=== PATIENT | female | born 1980 | race Caucasian/White ===

== ENCOUNTER 2022-06-01 11:41 | Emergency (ER) | payer SELFPAY ==
[2022-06-01 12:32] LABS: BASOPHIL 0.7 % (0-2); HCT 38.5 % (37.0-47.0); HGB 12.7 g/dl (12.5-16.0); LYMPHOCYTE 37.1 % (15-48); MCH 27.7 pg (25.0-31.0); MCV 84.1 fL (78.0-100.0); MONOCYTE 8.6 % (0-12); MPV 9.7 fL (6.0-9.5); NEUTROPHIL 51.6 % (41-80); NRBC 0; PLT 267 K/uL (150-400); RBC 4.58 M/uL (4.20-5.40); RDW 14.3 % (11.5-14.0); WBC 4.4 K/uL (4.0-10.5)
[2022-06-01 12:44] LABS: BILIRUBIN NEGATIVE (NEGATIVE); BLOOD NEGATIVE Ery/uL (NEGATIVE); CLARITY HAZY (CLEAR); COLOR YELLOW (YELLOW); GLUCOSE (U) NORMAL (NORMAL); LEUKOCYTES NEGATIVE Leu/uL (NEGATIVE); NITRITE NEGATIVE (NEGATIVE); PROTEIN NEGATIVE (NEGATIVE); UROBILINOGEN 0.2 mg/dL (0.2-1.0)
[2022-06-01 13:13] LABS: INFLUENZA A NAA NEGATIVE (NEGATIVE)
[2022-06-01 13:16] LABS: CORONAVIRUS 2019 SARS-COV-2 POSITIVE (NEGATIVE)
[2022-06-01 13:24] LABS: ALBUMIN 3.1 g/dL (3.4-5.0); BILIRUBIN - TOTAL 0.3 mg/dL (0.2-1.0); BUN/CREAT RATIO (CALC) 8.7 RATIO; CREATININE 0.69 mg/dL (0.51-0.95); GLOBULIN (CALCULATION) 3.9 g/dL; POTASSIUM 3.4 mmol/L (3.5-5.1)
== END 2022-06-01 13:52 | disposition home or self-care (01) ==
LOC: FER 11:41
PROVIDERS: Nurse Practitioner Family
DX: U07.1 COVID-19 (principal); Z88.8 Allergy status to other drugs, medicaments and biological substances; Z91.018 Allergy to other foods
CPT/HCPCS: 36415; 80053; 81003; 85025; 99284; U0002

== ENCOUNTER 2022-06-17 16:05 | Emergency (ER) | payer OTHER | END 2022-06-17 19:12 | disposition left against medical advice (07) | LOC: FER 16:05 | DX: R51.9 Headache, unspecified (principal); Z53.21 Procedure and treatment not carried out due to patient leaving prior to being seen by health care provider ==